=== PATIENT | female | born 1995 | race Caucasian/White ===

== ENCOUNTER 2017-05-02 21:24 | Emergency (ER) | payer OTHER ==
[2017-05-02 21:42] VITALS: BP 126/84
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
[2017-05-02] MEDS ORDERED: ACETAMINOPHEN 325 MG TABLET PO ONE (23:20)
== END 2017-05-03 00:10 | disposition home or self-care (01) ==
LOC: ER 21:24
DX: S62.306A Unspecified fracture of fifth metacarpal bone, right hand, initial encounter for closed fracture (principal); M79.673 Pain in unspecified foot; V49.50XA Passenger injured in collision with unspecified motor vehicles in traffic accident, initial encounter
CPT/HCPCS: 99283